=== PATIENT | male | born 1985 | race Caucasian/White ===

== ENCOUNTER 2024-08-07 09:32 | Outpatient (AMB) | payer MEDICAID, SELFPAY ==
--- NOTE | 2024-08-07 09:34 | A.OFFVIS_ITS ---
Intake Visit Reasons: [facility] Ref Intake Note: [employer] Right LE non healing wounds for 10 years and Hx of Angios w/ stenting w/ and did some vein ablations. Dr. Dominique from [place] did some additional procedures. Hx of PE and DVT 10 years ago, does have thrombus in Right LE from US 05/28. Pt is on blood thinners and has been seen by hematology in [place]. Accompanied by: Self / Same As Patient Allergies No Known Allergies Allergy (Verified 08/07/24 09:48) HPI HPI [facility] Wound [facility] Ref: Details: Very pleasant 39-year-old gentleman presents for evaluation regarding nonhealing ulcers. He actually has an extremely complex history dating back nearly 10 years. He was actually sent over by the W[facility] Care Center. He has had these nonhealing right lower extremity ulcers they have been present for nearly 10 years he has seen several wound care centers has been treated as an outpatient arterial center. It appears that he has had axial vein ablation is. In addition he has had central venous work. He now presents for vascular evaluation [facility] Medical History (Updated 08/07/24 @ 13:58 by Anibal Stern MD) S/P angiogram of extremity DVT (deep venous thrombosis) Cellulitis of right leg Venous ulcer of right leg Surgical History (Updated 08/07/24 @ 09:58 by EDDI Cortez) Status post ablation of incompetent vein using laser Social History (Updated 08/07/24 @ 09:48 by EDDI Cortez) Patient Tobacco Use Status: Never used Tobacco Review of Systems Const All systems reviewed & are unremarkable except as noted in HPI and below Reports no additional complaints ENT Reports Normal hearing present Card Denies chest pain, Denies chest pain at rest, Denies chest pain with activity and Denies pedal edema Resp Denies cough GI Denies abdominal pain Musc Denies abnormal gait, Denies muscle cramps and Denies radiating pain into limb Skin/Breast Denies skin ulcer and Denies wounds Neuro Reports Normal hearing present and Denies abnormal gait Psych Reports no additional complaints Physical Exam Const General: cooperative, healthy appearing and comfortable Orientation/consciousness: oriented to person, oriented to place and oriented to time HEENT Head: Yes normal to inspection Neck Neck: Yes normal visual inspection Carotids: no bruits Chest Chest palpation & inspection: normal inspection of the chest Resp Effort & Inspection: normal respiratory effort and able to speak in complete sentences Auscultation: clear to auscultation bilaterally, no crackles, no rales, no rhonchi and no wheezes Cardio Rate: regular rate Rhythm: regular rhythm Heart sounds: S1 normal heart sound present and S2 normal heart sound present Bruits: no carotid bruits Peripheral pulses: Peripheral pulses 2+ throughout GI Inspection: Yes normal to inspection Skin Other: Plus two edema, nonhealing ulcers right lower extremity Wounds: no wounds Hair: normal Neuro General: oriented to person, oriented to place and oriented to time Cranial nerves: Yes CN's II-XII intact bilaterally and Yes Normal hearing present Cognition (Neuro): normal cognition Motor exam (neuro): 5/5 motor strength present throughout Extrem Other: venous exam: No significant superficial varicosities or spider telangiectasias, minimal edema General: No clubbing, No cyanosis and No edema Psych Appearance: grossly normal Mental Status: mental status grossly normal Speech and movement: Normal speech and movement present Assessment & Plan Assessment & Plan (1) PAD (peripheral artery disease): Comment: - endovascular treatment by Dr. Abdul right lower extremity what was done is unknown Code(s): I73.9 - Peripheral vascular disease, unspecified Category: Medical Plan: May need follow-up regarding this. (2) DVT (deep venous thrombosis): Comment: 2018 - [place] appears to have deep venous thrombectomy with possible venous stenting Code(s): I82.409 - Acute embolism and thrombosis of unspecified deep veins of unspecified lower extremity Category: Medical Plan: Status of deep system is unknown. Will need CT venogram to better elucidate this. It has never been surveillance followed up. (3) Varicose veins of right lower extremity with inflammation: Comment: 2018 - axial venous procedures performed by Dr. Pradhan what was done is unknown. Code(s): I83.11 - Varicose veins of right lower extremity with inflammation Category: Medical Plan: Will workup deep system 1st. Orders: Orders 2 CT abdomen pelvis wo IV con 1 Week I82.409 - Acute embolism and thrombosis of unspecified deep veins of unspecified lower extremity Blood Urea Nitrogen Today I82.409 - Acute embolism and thrombosis of unspecified deep veins of unspecified lower extremity Creatinine Today I82.409 - Acute embolism and thrombosis of unspecified deep veins of unspecified lower extremity Coding Level of Care Code New Pt Level 4 (71800) Diagnoses PAD (peripheral artery disease) I73.9 DVT (deep venous thrombosis) I82.409 Varicose veins of right lower extremity with inflammation I83.11
== END 2024-08-07 10:03 | disposition home or self-care (01) ==
PROVIDERS: PCP Family Medicine; Visit Provider Surgery Vascular Surgery
DX: I73.9 Peripheral vascular disease, unspecified (principal); I82.409 Acute embolism and thrombosis of unspecified deep veins of unspecified lower extremity; I83.11 Varicose veins of right lower extremity with inflammation
CPT/HCPCS: 99204

== ENCOUNTER → 2024-08-07 09:32 | Outpatient (BNVA) | payer MEDICAID, SELFPAY | PROVIDERS: PCP Family Medicine; Visit Provider Surgery Vascular Surgery | DX: I73.9 Peripheral vascular disease, unspecified (principal); I82.401 Acute embolism and thrombosis of unspecified deep veins of right lower extremity; I83.11 Varicose veins of right lower extremity with inflammation | CPT/HCPCS: 99202 ==

== ENCOUNTER 2024-09-24 07:49 | Outpatient (REF) | payer MEDICAID, SELFPAY ==
--- NOTE | ~2024-09-24 | CT_ITS ---
EXAMINATION: CT ANGIOGRAM ABDOMEN AND PELVIS CLINICAL INFORMATION: Peripheral vascular disease, unspecified. History of DVT. COMPARISON: None available. TECHNIQUE: Multiple axial images were obtained through the abdomen and pelvis following the administration of 80 mL of Omnipaque 350 intravenous contrast without reported immediate complications. Images were reviewed on a dedicated 3-D workstation. This CT examination was performed using dose optimization techniques as appropriate, variously including the following: *Automated exposure control *Adjustment of mA and/or kV according to patient size (this includes techniques or standardized protocols for targeted exams where dose is matched to indication/reason for exam; i.e. extremities or head) *Use of iterative reconstruction technique DLP: 770 mGy-cm FINDINGS: Submitted for interpretation on October 06, 2024. Abdominal aorta is patent. Proximal abdominal aorta measures 21 mm. Infrarenal abdominal aorta measures 17 mm. Distal abdominal aorta measures 17 mm. No intimal flap. No focal stenosis. Right common iliac artery measures 11 mm. Left common iliac artery measures 10 mm. Right external iliac artery measures 9 mm. Left external iliac artery measures 9 mm. The internal iliac arteries are patent. Celiac trunk is patent without focal stenosis or intimal flap or vascular abnormality. Superior mesenteric artery is patent without focal stenosis or intimal flap. The inferior mesenteric artery is patent without focal stenosis. The main renal arteries are patent without focal stenosis. No gross accessory renal arteries. Ancillary findings: Hiatal hernia, moderate to large size. Nonspecific mesenteric edema pattern in mild prominent mesenteric lymph nodes. Fat-containing umbilical hernia, small. Multilevel thoracolumbar spondylosis with an old superior compression deformity at L1 representing 40% volume loss. Grade 1 anterolisthesis L5-S1 on a degenerative basis. CT/CT angio abdomen pelvis IMPRESSION: No aneurysm or dissection or high degree stenosis. Fleischner guidelines were followed. Electronically signed by: Faisal Wren MD 10/06/2024 11:54 AM EST
[2024-09-24] MEDS: iohexoL 350 MG/ML 100 ML INFUS..BTL 80 ML IV (08:47)
== END 2024-09-24 07:50 | disposition home or self-care (01) ==
LOC: HO.CT 07:49
PROVIDERS: PCP Family Medicine; Visit Provider Surgery Vascular Surgery
DX: I73.9 Peripheral vascular disease, unspecified (principal)
CPT/HCPCS: 74174; Q9967

== ENCOUNTER → 2024-09-24 07:50 | Outpatient (BNV) | payer MEDICAID, SELFPAY | PROVIDERS: PCP Family Medicine; Visit Provider Radiology Diagnostic Radiology | DX: I82.409 Acute embolism and thrombosis of unspecified deep veins of unspecified lower extremity (principal) | CPT/HCPCS: 74174 ==

== ENCOUNTER 2024-10-07 08:58 | Outpatient (AMB) | payer MEDICAID, SELFPAY ==
--- NOTE | 2024-10-07 09:17 | MHC.OFFVIS ---
Intake Visit Reasons: follow up s/p CT Abd/Pelvis 09/09/24 Intake Note: Patient presents for follow up CT ABD/Pelvis. No complaints. Accompanied by: Self / Same As Patient Allergies No Known Allergies Allergy (Verified 10/07/24 09:17) [facility] follow up s/p CT Abd/Pelvis 09/09/24: Details: Very pleasant 39-year-old gentleman presents for follow-up regarding nonhealing right lower extremity wounds. He complex history of ulcers in the right leg. He had seen a [facility] and actually had venous treatments done at [facility] in addition he did report some lower extremity stenting of what he is unclear if that was arterial or venous. Now presents for follow-up with Central CT of abdomen and pelvis. Of note he is following the Wound Care Center and appears to be scheduled for [facility] skin substitute placement. [facility] Medical History (Updated 10/07/24 @ 12:59 by Anibal Stern MD) S/P angiogram of extremity DVT (deep venous thrombosis) Cellulitis of right leg Venous ulcer of right leg Surgical History (Updated 08/07/24 @ 09:58 by EDDI Cortez) Status post ablation of incompetent vein using laser Social History (Updated 08/07/24 @ 09:48 by EDDI Cortez) Patient Tobacco Use Status: Never used Tobacco Review of Systems Const Reports as per HPI ENT Reports no additional complaints Card Denies chest pain, Denies chest pain at rest and Denies chest pain with activity Resp Denies chest congestion and Denies cough GI Reports no additional complaints Musc Details: pain over varicosities, aching of lower extremities, swelling, cramping, heaviness and tiredness, itching Denies abnormal gait Skin/Breast Reports pruritus and Denies wounds Neuro Reports no additional complaints and Denies abnormal gait Psych Denies no additional complaints Physical Exam Const General: cooperative, healthy appearing and comfortable Orientation/consciousness: oriented to person, oriented to place and oriented to time Neck Carotids: no bruits Chest Chest palpation & inspection: normal inspection of the chest and normal palpation of entire chest wall Resp Effort & Inspection: normal respiratory effort and able to speak in complete sentences Cardio Rate: regular rate Heart sounds: S1 normal heart sound present and S2 normal heart sound present Peripheral pulses: Peripheral pulses 2+ throughout GI Inspection: Yes normal to inspection Skin Other: +2 edema, right calf ulcer CEAP Classification C6 - right calf ulcer Ep - Etiology Primary As - superficial veins P - reflux General skin exam: dry skin Neuro General: oriented to person, oriented to place and oriented to time Extrem Right lower extremity: full ROM, normal capillary refill and edema Left lower extremity: full ROM, normal capillary refill and edema Psych Mental Status: mental status grossly normal Results Reviewed Results Reviewed: CT scan dated 09/24/2024 demonstrates no central arterial stenosis. No central venous stenosis written report and images were reviewed. Assessment & Plan Assessment & Plan (1) PAD (peripheral artery disease): Comment: - endovascular treatment by Dr. Abdul right lower extremity what was done is unknown Code(s): I73.9 - Peripheral vascular disease, unspecified Category: Medical Plan: Reports prior stenting of the right lower extremity. Will get noninvasive arterial testing. (2) DVT (deep venous thrombosis): Comment: 2017 - [place] appears to have deep venous thrombectomy with possible venous stenting Code(s): I82.409 - Acute embolism and thrombosis of unspecified deep veins of unspecified lower extremity Category: Medical Qualifiers: DVT location: lower extremity Affected thrombotic vein of extremity: femoral Chronicity: chronic Laterality: right Qualified Code(s): I82.511 - Chronic embolism and thrombosis of right femoral vein Plan: Negative for central venous stenosis or stenting. Will get axial venous insufficiency testing. Please note a longitudinal relationship has been created with the patient and we have been following and surveillance this chronic condition. (3) Varicose veins of right lower extremity with inflammation: Comment: 2017 - axial venous procedures performed by Dr. Pradhan what was done is unknown. 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
== END 2024-10-07 09:48 | disposition home or self-care (01) ==
PROVIDERS: PCP Family Medicine; Visit Provider Surgery Vascular Surgery
DX: I73.9 Peripheral vascular disease, unspecified (principal); I82.511 Chronic embolism and thrombosis of right femoral vein; I83.11 Varicose veins of right lower extremity with inflammation
CPT/HCPCS: 99214

== ENCOUNTER → 2024-10-07 08:58 | Outpatient (BNVA) | payer MEDICAID, SELFPAY | PROVIDERS: PCP Family Medicine; Visit Provider Surgery Vascular Surgery | DX: I73.9 Peripheral vascular disease, unspecified (principal); I82.511 Chronic embolism and thrombosis of right femoral vein; I83.11 Varicose veins of right lower extremity with inflammation | CPT/HCPCS: 99212 ==

== ENCOUNTER 2024-10-31 08:00 | Outpatient (REF) | payer MEDICAID, SELFPAY ==
--- NOTE | ~2024-10-31 | US_ITS ---
CLINICAL HISTORY: I83.11 - Varicose veins of right lower extremity with inflammation Venous duplex ultrasound right lower extremity Superficial venous reflux ultrasound Comparison: None Findings: The visualized deep veins are fully compressible with normal Doppler color flow and spectral tracings; however, there is minimal peripheral echogenic material along the right common, femoral and popliteal veins suggestive of prior deep vein thrombosis with residual scarring or minimal residual chronic deep vein thrombosis. No popliteal cyst. No deep venous reflux identified. Great saphenous vein: Saphenofemoral junction: 7 mm with 1.4 seconds of reflux Proximal thigh: 0.9 cm, 1.7 cm of reflux Mid thigh: 7 mm, no reflux Above knee: 2 mm, no reflux Small saphenous vein: Measures between 1 and 6 mm with no evidence of reflux. Several perforators in varicosities are noted adjacent to the calf wounds, demonstrating reflux, the largest arising in the region of the great saphenous vein, mid thigh measuring 8 mm and within the distal calf adjacent to the wound measuring 4 mm exhibiting 1.4 seconds of reflux. IMPRESSION: No acute deep vein thrombosis. Possible old scarring or minimal chronic deep vein thrombosis as detailed above. Reflux with perforators and varicosities as described. This document has been electronically signed by: Robbie Devi MD on 11/05/2024 08:40:34
== END 2024-10-31 08:01 | disposition home or self-care (01) ==
LOC: HO.US 08:00
PROVIDERS: PCP Family Medicine; Visit Provider Surgery Vascular Surgery
DX: I83.11 Varicose veins of right lower extremity with inflammation (principal)
CPT/HCPCS: 93971

== ENCOUNTER → 2024-10-31 08:01 | Outpatient (BNV) | payer MEDICAID, SELFPAY | PROVIDERS: PCP Family Medicine; Visit Provider Radiology Vascular & Interventional Radiology | DX: I83.11 Varicose veins of right lower extremity with inflammation (principal) | CPT/HCPCS: 93971 ==

== ENCOUNTER 2024-11-04 13:49 | Outpatient (REF) | payer MEDICAID, SELFPAY ==
--- NOTE | ~2024-11-04 | US_ITS ---
CLINICAL HISTORY: I73.9 - Peripheral vascular disease, unspecified Ankle-brachial index Comparison: None Findings: Right brachial artery 133.0 mmHg Right posterior tibial artery 200.0 mmHg Right dorsalis pedis artery 165.0 mmHg Right GUALBERTO:1.37 Left brachial artery 146.0 mmHg Left posterior tibial artery 160.0 mmHg Left dorsalis pedis artery 155.0 mmHg Left GUALBERTO:1.10 GUALBERTO and estimated severity of disease: 0.96 - 1.30 generally normal 0.81 - 0.95 mild disease 0.51 - 0.80 moderate disease 0.31 - 0.50 moderate to severe disease < 0.30 severe disease Impression: 1. Right GUALBERTO is normal 2. Left GUALBERTO is normal Right lower extremity duplex arterial Doppler Comparison: None Technique: Grayscale/Color/Duplex Doppler sonographic evaluation of the arterial system of the right Findings: Right lower extremity HISTOTECHNICIAN: Triphasic: 89.4 cm/s SFA: Triphasic: 97.1 cm/s Popliteal artery: 75.0: cm/s Posterior tibial: Triphasic: 136.8 cm/s Dorsalis pedis: Biphasic: 13.5 cm/s Anterior tibial: Triphasic: 94.0 cm/s Peroneal: Not visualized: Enlarged right inguinal lymph node with a fatty hilum. This measures 1.3 cm in short axis. Impression: 1. No occlusive disease right lower extremity. 2. Triphasic flow above the right knee. Biphasic flow in the right dorsalis pedis artery. Elevated peak systolic velocity in the right posterior tibial vein may reflect mild stenosis. This document has been electronically signed by: Wilmar Baumann MD on 11/05/2024 13:48:33
== END 2024-11-04 13:50 | disposition home or self-care (01) ==
LOC: HO.US 13:49
PROVIDERS: PCP Family Medicine; Visit Provider Surgery Vascular Surgery
DX: I73.9 Peripheral vascular disease, unspecified (principal)
CPT/HCPCS: 93926

== ENCOUNTER → 2024-11-04 13:51 | Outpatient (BNV) | payer MEDICAID, SELFPAY | PROVIDERS: PCP Family Medicine; Visit Provider Radiology Diagnostic Radiology | DX: I73.9 Peripheral vascular disease, unspecified (principal) | CPT/HCPCS: 93926 ==

== ENCOUNTER → 2024-11-27 13:50 | Outpatient (BNVA) | payer MEDICAID, SELFPAY | PROVIDERS: PCP Family Medicine; Visit Provider Surgery Vascular Surgery | DX: I73.9 Peripheral vascular disease, unspecified (principal); I83.11 Varicose veins of right lower extremity with inflammation | CPT/HCPCS: 99212 ==

== ENCOUNTER → 2024-12-05 11:51 | Outpatient (BNVA) | payer MEDICAID, SELFPAY | PROVIDERS: PCP Family Medicine; Visit Provider Surgery Vascular Surgery | DX: I83.11 Varicose veins of right lower extremity with inflammation (principal) | CPT/HCPCS: 36475; J2003; J2004 ==

== ENCOUNTER 2024-12-18 14:10 | Outpatient (AMB) | payer MEDICAID, SELFPAY ==
--- NOTE | 2024-12-18 14:12 | MHC.OFFVIS ---
Intake Visit Reasons: 2 wk follow up 12/05/24 RFA Intake Note: 2 week follow up Right GSV RFA 12/05/24, pt states he does have some discomfort over treated area, walking tends to help. Pt states wounds are still about the same, havent worsened. Accompanied by: Self / Same As Patient Allergies No Known Allergies Allergy (Verified 12/18/24 14:16) HPI HPI 2 wk follow up 12/05/24 RFA: Details: Rafael is presenting today as a follow up to RFA procedure, performed on 12/05/2024. He states he has been having some pain and tenderness to the right upper thigh area, where the procedure was performed. He has been the using heat, which he states temporarily relieves the pain as well as Tylenol OTC for pain, which he states is only temporary as well. He is unable to take NSAIDs due to being on Xarelto. He continues to follow up with wound care for his right lower extremity wound; he is waiting on a skin substitute to come. [facility] Medical History S/P angiogram of extremity DVT (deep venous thrombosis) Cellulitis of right leg Venous ulcer of right leg Surgical History Status post ablation of incompetent vein using laser Social History Patient Tobacco Use Status: Never used Tobacco Review of Systems Const Reports as per HPI and Denies weakness ENT Reports Normal hearing present and Denies dizziness Card Reports as per HPI, Denies chest pain, Denies chest pain at rest, Denies chest pain with activity, Denies dyspnea and Denies dyspnea on exertion Resp Reports as per HPI, Denies cough, Denies dyspnea and Denies dyspnea on exertion GI Reports as per HPI, Denies abdominal pain, Denies nausea and Denies vomiting Musc Denies numbness Skin/Breast Reports as per HPI, Denies erythema and Denies wounds Neuro Reports Normal hearing present, Denies dizziness, Denies numbness, Denies Sensory deficit (Neuro) and Denies weakness Psych Reports no additional complaints Endo Reports no additional complaints Physical Exam Const General: healthy appearing and no acute distress Orientation/consciousness: patient oriented x3 HEENT Head: Yes normal to inspection Ears: hearing grossly normal bilaterally Mouth: Normal oral and palatal mucosa present Resp Effort & Inspection: normal respiratory effort and able to speak in complete sentences Auscultation: clear to auscultation bilaterally Cardio Jugular venous distension: no JVD Rate: regular rate Rhythm: regular rhythm Heart sounds: S1 normal heart sound present and S2 normal heart sound present Bruits: no abdominal aortic bruits, no carotid bruits, no femoral bruits and no renal bruits Peripheral pulses: Peripheral pulses 2+ throughout GI Inspection: Yes normal to inspection Palpation (GI): No Abdominal aortic bruit present Skin General skin exam: no rashes or lesions noted Wounds: no wounds Hair: normal Neuro General: patient oriented x3 Cranial nerves: Yes Normal hearing present Cognition (Neuro): normal cognition Gait exam (Neuro): Normal gait present Motor exam (neuro): 5/5 motor strength present throughout Sensory Exam: No Sensory deficit (Neuro) Extrem Other: Right lower extremity thigh: Tender to palpation on the inner medial thigh. Slight pink/light red discoloration noted around the area of the RFA site, no signs of infection. Puncture site is clean and dry. Lower extremity wound wrapped, did not take down today. General: Yes normal to inspection, Yes full ROM, Yes capillary refill normal and Yes normal gait Assessment & Plan Assessment & Plan (1) Varicose veins of right lower extremity with inflammation: Comment: 2018 - axial venous procedures performed by Dr. Pradhan what was done is unknown. 12/05/2024 - right great saphenous vein radiofrequency ablation Code(s): I83.11 - Varicose veins of right lower extremity with inflammation Category: Medical Plan: Rafael is presenting today on a 2 week follow up status post RFA of the right great saphenous vein, performed on 12/05/2024. He states he has been doing well but does endorse some pain and tenderness in the area of the RFA site. He has been using heat with some temporary relief as well as Tylenol, again with only temporary relief. He is unable to take NSAIDs at this time. We discussed to continue applying heat for up to 20 minutes at a time several times a day. We discussed that he could try ice/cold to see if that could help with the pain as well. We discussed continuing taking Tylenol for pain relief. He would like to come back for further procedures that were discussed in previous visits with Dr. Stern; I discussed with him that it would be best that if he could get completely healed from this procedure and we could follow up with him in a month or so. Thank you for allowing us to participate in the patient's care. If there are any questions or concerns, please do not hesitate to reach out to us. Coding Level of Care Code Est Pt Level 4 (33076) Diagnoses Varicose veins of right lower extremity with inflammation I83.11
--- OUTSIDE RECORDS SUMMARY | 2024-12-18 14:14 | XMS_ITS | Clinical Summary ---
Author Organization [facility] Address [address] [place] [address] Care Team Providers Care Glass Processing Worker Name Role Phone Unavailable Primary Care Provider Unavailabl e Social History Tobacco Use Types Packs/Day Years Used Date Smoking Tobacco: Never Assessed Sex and Gender Information Value Date Recorded Sex Assigned at Not on file Gender Identity Not on file Sexual Orientation Not on file Plan of Treatment Health Maintenance Due Date Last Done Comments Hepatitis C Virus Screening 1987 HIV Screening 01/25/2000 DTaP/Tdap/Td Vaccines (1 - Tdap) 2006 Hepatitis B Vaccines (1 of 3 - 19+ 3-dose series) 2006 Influenza Vaccine 06/05/2024 COVID-19 Vaccine ( - 2023-2 5 season) 2024 HPV Vaccines Aged Out No longer eligi ble based on patient's age to complete this topic Pneumococcal Vaccine: Pediat ania (0-5 Years) and At-Risk Patients (6 to 49 Years) Aged Out No longer eligible b ased on patient's age to complete this topic
== END 2024-12-18 15:01 | disposition home or self-care (01) ==
PROVIDERS: PCP Family Medicine; Visit Provider Surgery Vascular Surgery
DX: I83.11 Varicose veins of right lower extremity with inflammation (principal)
CPT/HCPCS: 99214

== ENCOUNTER → 2024-12-18 14:10 | Outpatient (BNVA) | payer MEDICAID, SELFPAY | PROVIDERS: PCP Family Medicine; Visit Provider Surgery Vascular Surgery | DX: I83.11 Varicose veins of right lower extremity with inflammation (principal) | CPT/HCPCS: 99212 ==

== ENCOUNTER 2025-01-27 09:06 | Outpatient (AMB) | payer MEDICAID, SELFPAY ==
--- NOTE | 2025-01-27 09:11 | A.OFFVIS_ITS ---
Intake Visit Reasons: 1 mo follow up Right LE check Intake Note: 1 mo followup Right LE check s/p Right GSV RFA 12/05/24, Pt states wound size has not changed much and goes to [facility] woundcare 1 x per week. Pt states he does still have swelling. Accompanied by: Self / Same As Patient Allergies No Known Allergies Allergy (Verified 01/27/25 09:24) HPI HPI 1 mo follow up Right LE check: Details: The patient is a 40-year-old male presenting with follow-up for status post- right Great Saphenous Vein Radiofrequency Ablation (GSV RFA). His post- procedural care includes regular visits to a wound care center. The patient recounts persistent challenges with wound healing, notably unchanged wound states post-procedure and episodes of swelling in his leg. Although occasional improvement is observed, progress is inconsistent, resulting in wound reopening at times. He notes that he has not had infections recently, a significant improvement from earlier months when he required hospital visits for IV antibiotics. The patient has developed post-procedure phlebitis, impacting his overall condition. He identifies noticeable hardening due to phlebitis but acknowledges a gradual improvement. Utilizing warm compresses has been helpful in managing discomfort. The patient actively participates in wound care at home and aligns with the wound care center weekly for assessment and additional management with silver alginate dressings. In the past, he employed multilayer compression dressings which effectively provided necessary compression and dressing stability. He is in pursuit of limb elevation strategies and lymphedema compression solutions to manage the recurring swelling. The patient has had difficulty obtaining a specific skin graft, a fish-derived substitute, rendering attempts to support wound recovery more challenging. [facility] Medical History S/P angiogram of extremity DVT (deep venous thrombosis) Cellulitis of right leg Venous ulcer of right leg Surgical History Status post ablation of incompetent vein using laser Social History Patient Tobacco Use Status: Never used Tobacco Review of Systems Const All systems reviewed & are unremarkable except as noted in HPI and below Reports no additional complaints ENT Reports Normal hearing present Card Denies chest pain, Denies chest pain at rest, Denies chest pain with activity and Denies pedal edema Resp Denies cough GI Denies abdominal pain Musc Denies abnormal gait, Denies muscle cramps and Denies radiating pain into limb Skin/Breast Denies skin ulcer and Denies wounds Neuro Reports Normal hearing present and Denies abnormal gait Psych Reports no additional complaints Physical Exam Const General: cooperative, healthy appearing and comfortable Orientation/consciousness: oriented to person, oriented to place and oriented to time HEENT Head: Yes normal to inspection Neck Neck: Yes normal visual inspection Carotids: no bruits Chest Chest palpation & inspection: normal inspection of the chest Resp Effort & Inspection: normal respiratory effort and able to speak in complete sentences Auscultation: clear to auscultation bilaterally, no crackles, no rales, no rhonchi and no wheezes Cardio Rate: regular rate Rhythm: regular rhythm Heart sounds: S1 normal heart sound present and S2 normal heart sound present Bruits: no carotid bruits Peripheral pulses: Peripheral pulses 2+ throughout GI Inspection: Yes normal to inspection Skin Other: Nonhealing right lower extremity ulcer Wounds: no wounds Hair: normal Neuro General: oriented to person, oriented to place and oriented to time Cranial nerves: Yes CN's II-XII intact bilaterally and Yes Normal hearing present Cognition (Neuro): normal cognition Motor exam (neuro): 5/5 motor strength present throughout Extrem Other: Right in cm: Thigh 61 Knee 48 Calf 47 Ankle 37 Left in cm: Thigh 53 Knee 45 Calf 42.5 Ankle 24 General: No clubbing, No cyanosis and Yes edema Psych Appearance: grossly normal Mental Status: mental status grossly normal Speech and movement: Normal speech and movement present Assessment & Plan Assessment & Plan (1) PAD (peripheral artery disease): Comment: - endovascular treatment by Dr. Abdul right lower extremity what was done is unknown Code(s): I73.9 - Peripheral vascular disease, unspecified Category: Medical Plan: Stable (2) Varicose veins of right lower extremity with inflammation: Comment: 2017 - axial venous procedures performed by Dr. Pradhan what was done is unknown. 12/05/2024 - right great saphenous vein radiofrequency ablation Code(s): I83.11 - Varicose veins of right lower extremity with inflammation Category: Medical Plan: He does have mild postprocedure phlebitis. We did discuss routine postprocedure measures including warm compresses and use of NSAIDs. (3) DVT (deep venous thrombosis): Comment: 2017 - [place]am appears to have deep venous thrombectomy with possible venous stenting Code(s): I82.409 - Acute embolism and thrombosis of unspecified deep veins of unspecified lower extremity Category: Medical Qualifiers: DVT location: lower extremity Affected thrombotic vein of extremity: femoral Chronicity: chronic Laterality: right Qualified Code(s): I82.511 - Chronic embolism and thrombosis of right femoral vein Plan: Stable (4) Lymphedema: Code(s): I89.0 - Lymphedema, not elsewhere classified Category: Medical Plan: In short the patient has late on sent lymphedema. The patient has been on conservative treatment for at least 3 months with minimal relief. Patient has tried 30 mm of mercury compression garments, elevation, exercise healthy diet and doing manual says self MLD to the best of their ability for over 4 weeks but with no significant relief. She has been compliant with the program but has provided minimal relief. In addition on physical we are noticing hyperpigmentation, lymphorrhea, and hyperplasia. It appears that she has stage 2 lymphedema. Patient has completed multiple forms of conservative therapy yet significant symptoms remain. Patient requires the use of a pneumatic compression device which we will assist in trying to have the patient obtain them. A pneumatic compression device will help reduce swelling and other lymphedema comorbidities. Thank you for allowing us to assist in this patient's care. Patient Instructions: - Continue applying silver alginate dressings as directed. - Use prescribed moisturizers, such as Eucerin Aquaphor or CeraVe, to maintain skin health. - Elevate the leg as much as possible to help reduce swelling. - Monitor for any signs of infection or increased pain, and seek care immediately if such symptoms develop. - Attend scheduled appointments for follow-up and lymphedema clinic evaluation. - Expect communication regarding skin graft availability and additional management steps. 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
--- OUTSIDE RECORDS SUMMARY | 2025-01-27 10:01 | XMS_ITS ---
Author Name [facility] Organization Unknown Encounters Encounter Type Encounter Reason Primary Diagnosis Location Date Ambulatory Pulmonary Embolism appening 01/26/2022 Care Team Organization Name Specialty Phone Email Start Date End Da te appening 01/28/2022 06/23/2024 appening 01/26/2022 01/26/2022
--- OUTSIDE RECORDS SUMMARY | 2025-01-27 10:01 | XMS_ITS | Clinical Summary ---
Author Organization [facility] Address [address] [place] [address] Care Team Providers Care Music Promoter Name Role Phone Unavailable Primary Care Provider [...]
== END 2025-01-27 10:19 | disposition home or self-care (01) ==
LOC: HO.HVS 09:06
PROVIDERS: PCP Family Medicine; Visit Provider Surgery Vascular Surgery
DX: I73.9 Peripheral vascular disease, unspecified (principal); I83.11 Varicose veins of right lower extremity with inflammation; I82.511 Chronic embolism and thrombosis of right femoral vein; I89.0 Lymphedema, not elsewhere classified
CPT/HCPCS: 99214; G2211

== ENCOUNTER → 2025-01-27 09:06 | Outpatient (BNVA) | payer MEDICAID, SELFPAY | PROVIDERS: PCP Family Medicine; Visit Provider Surgery Vascular Surgery | DX: I73.9 Peripheral vascular disease, unspecified (principal); I83.11 Varicose veins of right lower extremity with inflammation; I82.511 Chronic embolism and thrombosis of right femoral vein; I89.0 Lymphedema, not elsewhere classified; Z98.890 Other specified postprocedural states | CPT/HCPCS: 99212 ==

== ENCOUNTER 2025-02-18 12:15 | Outpatient (AMB) | payer MEDICAID, SELFPAY ==
--- NOTE | 2025-02-18 12:23 | MHC.OFFVIS ---
Vital Signs 02/18/25 12:32 Height 6 ft 3 in Weight 260 lb BMI 32.5 Intake Visit Reasons: Lymphedema clinic Intake Note: Lymphedema clinic for LE swelling and non-healing ulcer Right LE worse than Left LE. Pt changes dressing QOD Audio Visual Director Required: No Accompanied by: Self / Same As Patient Allergies No Known Allergies Allergy (Verified 02/18/25 12:35) HPI HPI Lymphedema clinic: Details: Rafael is presenting today for our lymphedema clinic. He continues to endorse bilateral lower extremity swelling and ongoing wounds, which he states worsen when his legs are more swollen. He continues to go to the Wound Care Clinic weekly. He is also s/p right GSV RFA, which he states helped a little. [facility] Medical History S/P angiogram of extremity DVT (deep venous thrombosis) Cellulitis of right leg Venous ulcer of right leg Surgical History Status post ablation of incompetent vein using laser Social History Patient Tobacco Use Status: Never used Tobacco Review of Systems Const Reports as per HPI and Denies weakness ENT Reports Normal hearing present and Denies dizziness Card Reports as per HPI, Denies chest pain, Denies chest pain at rest, Denies chest pain with activity, Denies dyspnea and Denies dyspnea on exertion Resp Reports as per HPI, Denies cough, Denies dyspnea and Denies dyspnea on exertion GI Reports as per HPI, Denies abdominal pain, Denies nausea and Denies vomiting Musc Denies numbness Skin/Breast Reports as per HPI, Denies erythema and Denies wounds Neuro Reports Normal hearing present, Denies dizziness, Denies numbness, Denies Sensory deficit (Neuro) and Denies weakness Psych Reports no additional complaints Endo Reports no additional complaints Physical Exam Vital Signs: BMI result Body Mass Index 32.5 Neuro Cranial nerves: Yes Normal hearing present Sensory Exam: No Sensory deficit (Neuro) Extrem Other: Bilateral lower extremities: wraps not taken down today. +2 pitting edema noted. Assessment & Plan Assessment & Plan (1) Lymphedema: Code(s): I89.0 - Lymphedema, not elsewhere classified Category: Medical Plan: Rafael is presenting today for our lymphedema clinic. He continues to endorse bilateral lower extremity swelling with nonhealing wounds. Rafael is presenting today to be fitted for lymphedema pumps. They have had more than 3 months, starting on 08/07/24, of conservative treatments with elevation, compression stockings daily use with 20-30mmHg, and physical activity with minimal relief. They continue to have persistent symptoms despite conservative treatments. They are presenting with hyperpigmentation, lymphorrhea, hyperkeratosis, and 2+ pitting edema. It appears that they have stage II lymphedema. Everette, from [employer], will be fitting them for a pneumatic compression device, which will get mailed to their house. The patient has lymphedema that extends to their upper thigh and abdominal region. The basic pneumatic compression device is not adequate for the patient; it has been trialed but is not clinically appropriate due to the extensive lymphedema noted. The advanced compression device will be the best in this case. Thank you allowing us to care for the patient. There is an out of network exception due to no local pump companies available. Coding Level of Care Code Est Pt Level 3 (41490) Diagnoses Lymphedema I89.0
[2025-02-18 12:32] VITALS: BMI 32.5
--- OUTSIDE RECORDS SUMMARY | 2025-02-18 14:34 | XMS_ITS | Clinical Summary ---
Author Organization [facility] Address [address] [place] [address] Care Team Providers Care Tub Puller Name Role Phone Unavailable Primary Care Provider Unavailabl e Social History Tobacco Use Types Packs/Day Years Used Date Smoking Tobacco: Never Assessed Sex and Gender Information Value Date Recorded Sex Assigned at Not on file Legal Sex Male 9:10 PM EDT Gender Identity Not on file Sexual Orientation [...] on patient's age to complete this topic Insurance [employer]
== END 2025-02-18 13:02 | disposition home or self-care (01) ==
LOC: HO.HVS 12:16
PROVIDERS: PCP Family Medicine; Visit Provider Physician Assistant Surgical
DX: I89.0 Lymphedema, not elsewhere classified (principal)
CPT/HCPCS: 99213

== ENCOUNTER → 2025-02-18 12:15 | Outpatient (BNVA) | payer MEDICAID, SELFPAY | PROVIDERS: PCP Family Medicine; Visit Provider Physician Assistant Surgical | DX: I89.0 Lymphedema, not elsewhere classified (principal); L97.819 Non-pressure chronic ulcer of other part of right lower leg with unspecified severity | CPT/HCPCS: 99212 ==

== ENCOUNTER 2025-03-12 11:14 | Outpatient (AMB) | payer MEDICAID, SELFPAY ==
[2025-03-12 11:21] VITALS: BMI 32.5
--- NOTE | 2025-03-12 11:21 | MHC.OFFVIS ---
Vital Signs 03/12/25 11:21 Height 6 ft 3 in Weight 260 lb BMI 32.5 Intake Visit Reasons: follow up 6 wk leg check Intake Note: follow up 6 wk leg check s/p Right GSV RFA 12/05/24. Has not been seen by woundcare in a while, has left v-mails to schedule. Does have LE swelling. Accompanied by: Self / Same As Patient Allergies No Known Allergies Allergy (Verified 03/12/25 11:23) HPI HPI follow up 6 wk leg check: Details: Very pleasant 40-year-old gentleman presents for follow-up status post right great saphenous vein radiofrequency ablation. He presents for follow-up regarding his right lower extremity. Continues to be significantly swollen and some drainage through the wounds. He has not been seen by the Wound Care Center and unfortunately has had difficulty reaching the Wound Care Center. He now presents for routine follow-up regarding his right lower extremity. [facility] Medical History S/P angiogram of extremity DVT (deep venous thrombosis) Cellulitis of right leg Venous ulcer of right leg Surgical History Status post ablation of incompetent vein using laser Social History Patient Tobacco Use Status: Never used Tobacco Review of Systems Const All systems reviewed & are unremarkable except as noted in HPI and below Reports no additional complaints ENT Reports Normal hearing present Card Denies chest pain, Denies chest pain at rest, Denies chest pain with activity and Denies pedal edema Resp Denies cough GI Denies abdominal pain Musc Denies abnormal gait, Denies muscle cramps and Denies radiating pain into limb Skin/Breast Denies skin ulcer and Denies wounds Neuro Reports Normal hearing present and Denies abnormal gait Psych Reports no additional complaints Physical Exam Vital Signs: BMI result Body Mass Index 32.5 Const General: cooperative, healthy appearing and comfortable Orientation/consciousness: oriented to person, oriented to place and oriented to time HEENT Head: Yes normal to inspection Neck Neck: Yes normal visual inspection Carotids: no bruits Chest Chest palpation & inspection: normal inspection of the chest Resp Effort & Inspection: normal respiratory effort and able to speak in complete sentences Auscultation: clear to auscultation bilaterally, no crackles, no rales, no rhonchi and no wheezes Cardio Rate: regular rate Rhythm: regular rhythm Heart sounds: S1 normal heart sound present and S2 normal heart sound present Bruits: no carotid bruits Peripheral pulses: Peripheral pulses 2+ throughout GI Inspection: Yes normal to inspection Skin Other: Two right pretibial ulceration this more superior measuring 10 x 5 x 0.2 cm the lower measuring 2 x 5 x 0.1 cm. Overall reasonable base. Some fibrinous necrotic material overlying. Wounds: no wounds Hair: normal Neuro General: oriented to person, oriented to place and oriented to time Cranial nerves: Yes CN's II-XII intact bilaterally and Yes Normal hearing present Cognition (Neuro): normal cognition Motor exam (neuro): 5/5 motor strength present throughout Extrem Other: venous exam: No significant superficial varicosities or spider telangiectasias, minimal edema General: No clubbing, No cyanosis and No edema Psych Appearance: grossly normal Mental Status: mental status grossly normal Speech and movement: Normal speech and movement present Office Procedures Vascular Office Procedure Details Details: Wound debridement note: Preoperative diagnosis: Nonhealing right lower extremity ulcer Postoperative diagnosis: Same Procedure: Excisional debridement into muscle Anesthesia: None Estimated blood loss: Minimal Pre-procedure measurement and appearance: Fibrinous necrotic superior ulcer measuring 10 x 5 x 0.2 cm Postprocedure measurement and appearance: Clean granulation base measuring 10.2 x 5.2 x 0.4 cm Procedure in detail: Excisional debridement of the right pretibial surface was carried out.. Necrotic devitalized and nonviable tissue was removed. We debrided into muscle using curette pickups and iris scissors. Wound was thoroughly irrigated. At the conclusion wound appeared reasonable granulation base fibrinous material was completely removed. Clean and sterile dressing was applied. A Profore compression bandage was then placed. Patient tolerated the procedure well. Instructions were given to the patient. Follow-up was suggested. This note is constructed using voice recognition software. While every effort has been made to ensure accuracy, case maker errors may have been included. Thank you for allowing me to participate in the care of your patient. Yours sincerely, Anibal Stern MD, FACS, R.P.V.I. [id number] Debridement, muscle and or fascia (lst 20 sq cm or less) All charges added?: Procedure code (CPT) selection complete Assessment & Plan Assessment & Plan (1) Lymphedema: Code(s): I89.0 - Lymphedema, not elsewhere classified Category: Medical Plan: Current time patient has nonhealing ulcers with lymphedema. We will place in Profore compression. (2) Varicose veins of right lower extremity with inflammation: Comment: 2018 - axial venous procedures performed by Dr. Pradhan what was done is unknown. 12/05/2024 - right great saphenous vein radiofrequency ablation Code(s): I83.11 - Varicose veins of right lower extremity with inflammation Category: Medical Plan: Continue with local wound care. Will have to schedule for right lower extremity debridement. Follow-up on Sunday for dressing change. Coding Level of Care Code Est Pt Level 4 (35101) Diagnoses Lymphedema I89.0 Varicose veins of right lower extremity with inflammation I83.11
--- OUTSIDE RECORDS SUMMARY | 2025-03-12 12:45 | XMS_ITS | Clinical Summary ---
Author Organization [facility] Address [address] [place] [address] Care Team Providers Care Door Patcher Name Role Phone Unavailable Primary Care Provider [...] of 3 - 19+ 3-dose series) 2006 COVID-19 Vaccine (2023-2 5 season) 2024 Influenza Vaccine 06/05/2025 HPV Vaccines Aged Out No longer eligi ble based on patient's age to complete this topic Pneumococcal Vaccine: Pediat ania (0-5 Years) and At-Risk Patients (6 to 49 Years) Aged Out No longer eligible b ased on patient's age to complete this topic Insurance [employer]
== END 2025-03-12 13:51 | disposition home or self-care (01) ==
LOC: HO.HVS 11:14
PROVIDERS: PCP Family Medicine; Visit Provider Surgery Vascular Surgery
DX: I89.0 Lymphedema, not elsewhere classified (principal); I83.11 Varicose veins of right lower extremity with inflammation
CPT/HCPCS: 99214

== ENCOUNTER → 2025-03-12 11:14 | Outpatient (BNVA) | payer MEDICAID, SELFPAY | PROVIDERS: PCP Family Medicine; Visit Provider Surgery Vascular Surgery | DX: I89.0 Lymphedema, not elsewhere classified (principal); I83.11 Varicose veins of right lower extremity with inflammation | CPT/HCPCS: 99212 ==

== ENCOUNTER 2025-04-02 10:06 | Outpatient (AMB) | payer MEDICAID, SELFPAY ==
--- NOTE | 2025-04-02 10:12 | A.OFFVIS_ITS ---
Vital Signs 04/02/25 10:13 Height 6 ft 3 in Weight 260 lb BMI 32.5 Intake Visit Reasons: follow up wound check Intake Note: follow up Right LE non-healing wound. Pt states he has been short wound care supplies and has been having trouble getting a hold of the [facility] woundcare. States the multi-layer wraps worked good,had bronchitis and wasn't able to come to his last 1 week follow up Instructor Looping Required: No Accompanied by: Self / Same As Patient Allergies No Known Allergies Allergy (Verified 04/02/25 10:15) HPI HPI follow up wound check: Details: 40-year-old gentleman presents for routine wound check follow-up. He had actually undergone placement of a compressive wrap and at that time he developed pneumonia. He was lost to follow-up. In addition he has been following the Wound Care Center but reports that he has had difficulty obtaining supplies from [employer]. Now presents for routine follow-up and wound check. [facility] Medical History S/P angiogram of extremity DVT (deep venous thrombosis) Cellulitis of right leg Venous ulcer of right leg Surgical History Status post ablation of incompetent vein using laser Social History Patient Tobacco Use Status: Never used Tobacco Review of Systems Const All systems reviewed & are unremarkable except as noted in HPI and below Reports no additional complaints ENT Reports Normal hearing present Card Denies chest pain, Denies chest pain at rest, Denies chest pain with activity and Denies pedal edema Resp Denies cough GI Denies abdominal pain Musc Denies abnormal gait, Denies muscle cramps and Denies radiating pain into limb Skin/Breast Denies skin ulcer and Denies wounds Neuro Reports Normal hearing present and Denies abnormal gait Psych Reports no additional complaints Physical Exam Vital Signs: BMI result Body Mass Index 32.5 Const General: cooperative, healthy appearing and comfortable Orientation/consciousness: oriented to person, oriented to place and oriented to time HEENT Head: Yes normal to inspection Neck Neck: Yes normal visual inspection Carotids: no bruits Chest Chest palpation & inspection: normal inspection of the chest Resp Effort & Inspection: normal respiratory effort and able to speak in complete sentences Auscultation: clear to auscultation bilaterally, no crackles, no rales, no rhonchi and no wheezes Cardio Rate: regular rate Rhythm: regular rhythm Heart sounds: S1 normal heart sound present and S2 normal heart sound present Bruits: no carotid bruits Peripheral pulses: Peripheral pulses 2+ throughout GI Inspection: Yes normal to inspection Skin Other: Right leg tibial surface the pretibial larger wound measures 9 x 6 x 0.1 cm more inferior is a 5 x 2 x 0.1 cm ulcer. There is some fibrinous material over all the skin is dry and excoriated along side of it. Wounds: no wounds Hair: normal Neuro General: oriented to person, oriented to place and oriented to time Cranial nerves: Yes CN's II-XII intact bilaterally and Yes Normal hearing present Cognition (Neuro): normal cognition Motor exam (neuro): 5/5 motor strength present throughout Extrem Other: venous exam: No significant superficial varicosities or spider telangiectasias, minimal edema General: No clubbing, No cyanosis and No edema Psych Appearance: grossly normal Mental Status: mental status grossly normal Speech and movement: Normal speech and movement present Assessment & Plan Assessment & Plan (1) PAD (peripheral artery disease): Comment: - endovascular treatment by Dr. Abdul right lower extremity what was done is unknown Code(s): I73.9 - Peripheral vascular disease, unspecified Category: Medical Plan: See below (2) DVT (deep venous thrombosis): Comment: 2018 - [place] appears to have deep venous thrombectomy with possible venous stenting Code(s): I82.409 - Acute embolism and thrombosis of unspecified deep veins of unspecified lower extremity Category: Medical Qualifiers: DVT location: lower extremity Affected thrombotic vein of extremity: femoral Chronicity: chronic Laterality: right Qualified Code(s): I82.511 - Chronic embolism and thrombosis of right femoral vein Plan: See below (3) Varicose veins of right lower extremity with inflammation: Comment: 2017 - axial venous procedures performed by Dr. Pradhan what was done is unknown. 12/05/2024 - right great saphenous vein radiofrequency ablation Code(s): I83.11 - Varicose veins of right lower extremity with inflammation Category: Medical Plan: See below (4) Lymphedema: Code(s): I89.0 - Lymphedema, not elsewhere classified Category: Medical Plan: In short patient has nonhealing right lower extremity ulcer. He will be scheduled for dressing change of compressive wrap next Sunday. In addition he will be scheduled for right lower extremity debridement. Risks benefits complications of the procedure were discussed in detail with the patient. He agreed and would like to move forward with that. Coding Level of Care Code Est Pt Level 4 (12484) Diagnoses PAD (peripheral artery disease) I73.9 Chronic deep vein thrombosis (DVT) of femoral vein of right lower extremity I82.511 DVT location: lower extremity Affected thrombotic vein of extremity: femoral Chronicity: chronic Laterality: right Varicose veins of right lower extremity with inflammation I83.11 Lymphedema I89.0
[2025-04-02 10:13] VITALS: BMI 32.5
== END 2025-04-02 11:06 | disposition home or self-care (01) ==
LOC: HO.HVS 10:07
PROVIDERS: PCP Family Medicine; Visit Provider Surgery Vascular Surgery
DX: I73.9 Peripheral vascular disease, unspecified (principal); I82.511 Chronic embolism and thrombosis of right femoral vein; I83.11 Varicose veins of right lower extremity with inflammation; I89.0 Lymphedema, not elsewhere classified
CPT/HCPCS: 99214

== ENCOUNTER → 2025-04-02 10:06 | Outpatient (BNVA) | payer MEDICAID, SELFPAY | PROVIDERS: PCP Family Medicine; Visit Provider Surgery Vascular Surgery | DX: I73.9 Peripheral vascular disease, unspecified (principal); I82.511 Chronic embolism and thrombosis of right femoral vein; I83.11 Varicose veins of right lower extremity with inflammation; I89.0 Lymphedema, not elsewhere classified | CPT/HCPCS: 99212 ==

== ENCOUNTER 2025-04-07 10:08 | Outpatient (AMB) | payer MEDICAID, SELFPAY ==
[2025-04-07 10:19] VITALS: BMI 32.5
--- NOTE | 2025-04-07 10:19 | MHC.OFFVIS ---
Vital Signs 04/07/25 10:19 Height 6 ft 3 in Weight 260 lb BMI 32.5 Intake Visit Reasons: wound check Intake Note: multi layer wrap change. Pt states he had such copius drainage that he had to take wrap off on Sunday and was unable to keep foot wrapped due to amount of drainage and irritation caused by wrap. He states the worse area is the weeping area on bottom of leg/ top of foot. States it has an odor. 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 He has chronic right lower extremity wounds, >11y, which have not been healing. He was going to [facility] here [facility] [place], but he states he has not been getting in there and they have not been sending wound care supplies in for him to change his dressings at home. He does continue to work, but recently has been working from home due to the increased drainage from the wounds. He is scheduled on Sunday for a surgical wound debridement. He states he is having extensive drainage from the area at the base of the foot/dorsal aspect of the ankle, where it is impeding his ability to bend and flex his foot. He states this has been worsening over the last week. He states this area has been draining more than the others. He denies any injuries to the area. He last changed his dressings on Sunday. [facility] Medical History S/P angiogram of extremity DVT (deep venous thrombosis) Cellulitis of right leg Venous ulcer of right leg Surgical History Status post ablation of incompetent vein using laser Social History Patient Tobacco Use Status: Never used Tobacco Review of Systems Const Reports as per HPI and Denies weakness ENT Reports Normal hearing present and Denies dizziness Card Reports as per HPI, Denies chest pain, Denies chest pain at rest, Denies chest pain with activity, Denies dyspnea and Denies dyspnea on exertion Resp Reports as per HPI, Denies cough, Denies dyspnea and Denies dyspnea on exertion GI Reports as per HPI, Denies abdominal pain, Denies nausea and Denies vomiting Musc Denies numbness Skin/Breast Reports as per HPI, Denies erythema and Denies wounds Neuro Reports Normal hearing present, Denies dizziness, Denies numbness, Denies Sensory deficit (Neuro) and Denies weakness Psych Reports no additional complaints Endo Reports no additional complaints Physical Exam Vital Signs: BMI result Body Mass Index 32.5 Const General: healthy appearing and no acute distress Orientation/consciousness: patient oriented x3 HEENT Head: Yes normal to inspection Ears: hearing grossly normal bilaterally Mouth: Normal oral and palatal mucosa present Resp Effort & Inspection: normal respiratory effort and able to speak in complete sentences Auscultation: clear to auscultation bilaterally Cardio Jugular venous distension: no JVD Rate: regular rate Rhythm: regular rhythm Heart sounds: S1 normal heart sound present and S2 normal heart sound present Bruits: no abdominal aortic bruits, no carotid bruits, no femoral bruits and no renal bruits Peripheral pulses: Peripheral pulses 2+ throughout GI Inspection: Yes normal to inspection Palpation (GI): No Abdominal aortic bruit present Skin General skin exam: no rashes or lesions noted Wounds: no wounds Hair: normal Neuro General: patient oriented x3 Cranial nerves: Yes Normal hearing present Cognition (Neuro): normal cognition Gait exam (Neuro): Normal gait present Motor exam (neuro): 5/5 motor strength present throughout Sensory Exam: No Sensory deficit (Neuro) Extrem Other: Right lower extremity: wounds not measured today, they were recently measured on 04/02. The mid-calf wound is malodorous with pseudomonas - green/blue noted in the lateral aspect of the entire wound. No drainage or bleeding noted. Second wound just distal to that wound is smaller, with slight drainage and beefy red wound bed. No bleeding noted. +2/3 pitting edema noted. Right foot base/dorsum of ankle: erythematous and swelling noted, moderate serous drainage noted. Passive and active ROM significantly decreased with dorsiflexion and plantar flexion. General: Yes normal to inspection, Yes full ROM, Yes capillary refill normal and Yes normal gait Assessment & Plan Assessment & Plan (1) PAD (peripheral artery disease): Comment: - endovascular treatment by Dr. Abdul right lower extremity what was done is unknown Code(s): I73.9 - Peripheral vascular disease, unspecified Category: Medical Plan: Rafael is presenting today for a wound check. He is scheduled for surgery for wound debridement on Sunday, he states he has never had a surgical debridement prior to this. 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 He had been using multiple layer wrapping for wound care. Today we applied multiple foam dressings, abd pads, kerlix wrap, and cricket bandage. I discussed with him that the foam dressing can go up to 7d, but it should be changed if there is leakage/soaking of the dressings. We supplied him with the dressing changes he would need. We will see him on Sunday for the surgical debridement. We discussed that if he had any issues or concerns prior to that, then he can reach out to the office. Coding Level of Care Code Est Pt Level 4 (53724) Diagnoses PAD (peripheral artery disease) I73.9
== END 2025-04-07 10:54 | disposition home or self-care (01) ==
LOC: HO.HVS 10:08
PROVIDERS: PCP Family Medicine; Visit Provider Physician Assistant Surgical
DX: I73.9 Peripheral vascular disease, unspecified (principal)
CPT/HCPCS: 99214

== ENCOUNTER → 2025-04-07 10:08 | Outpatient (BNVA) | payer MEDICAID, SELFPAY | PROVIDERS: PCP Family Medicine; Visit Provider Physician Assistant Surgical | DX: I87.331 Chronic venous hypertension (idiopathic) with ulcer and inflammation of right lower extremity (principal); L97.219 Non-pressure chronic ulcer of right calf with unspecified severity; I73.9 Peripheral vascular disease, unspecified | CPT/HCPCS: 99212 ==

== ENCOUNTER 2025-04-28 11:01 | Outpatient (AMB) | payer MEDICAID, SELFPAY ==
[2025-04-28 11:06] VITALS: BMI 32.5
--- NOTE | 2025-04-28 11:06 | A.OFFVIS_ITS ---
Vital Signs 04/28/25 11:06 Height 6 ft 3 in Weight 260 lb BMI 32.5 Intake Visit Reasons: follow up re-access wound for debridment Intake Note: Follow up to reaccess for Right LE wound debridement s/p [facility] hospital stay for PE. Had thrombectomy and was switched blood thinner meds. Accompanied by: Self / Same As Patient Allergies No Known Allergies Allergy (Verified 04/28/25 11:07) HPI HPI follow up re-access wound for debridment: Details: 40-year-old gentleman with nonhealing right lower extremity ulcers. He had been going to the [facility] but has been unable to follow-up with them as they have not reach back out to his multiple requests to see them. He was actually scheduled for wound debridement at that time ended up with a DVT and PE, status post embolectomy performed at [facility]. He appears to be doing much better. He has been switched from Xarelto to Eliquis. He now presents for wound follow-up of the right lower extremity. [facility] Medical History S/P angiogram of extremity DVT (deep venous thrombosis) Cellulitis of right leg Venous ulcer of right leg Surgical History Status post ablation of incompetent vein using laser Social History Patient Tobacco Use Status: Never used Tobacco Review of Systems Const All systems reviewed & are unremarkable except as noted in HPI and below Reports no additional complaints ENT Reports Normal hearing present Card Denies chest pain, Denies chest pain at rest, Denies chest pain with activity and Denies pedal edema Resp Denies cough GI Denies abdominal pain Musc Denies abnormal gait, Denies muscle cramps and Denies radiating pain into limb Skin/Breast Denies skin ulcer and Denies wounds Neuro Reports Normal hearing present and Denies abnormal gait Psych Reports no additional complaints Physical Exam Vital Signs: BMI result Body Mass Index 32.5 Const General: cooperative, healthy appearing and comfortable Orientation/consciousness: oriented to person, oriented to place and oriented to time HEENT Head: Yes normal to inspection Neck Neck: Yes normal visual inspection Carotids: no bruits Chest Chest palpation & inspection: normal inspection of the chest Resp Effort & Inspection: normal respiratory effort and able to speak in complete sentences Auscultation: clear to auscultation bilaterally, no crackles, no rales, no rhonchi and no wheezes Cardio Rate: regular rate Rhythm: regular rhythm Heart sounds: S1 normal heart sound present and S2 normal heart sound present Bruits: no carotid bruits Peripheral pulses: Peripheral pulses 2+ throughout GI Inspection: Yes normal to inspection Skin Other: Right lower extremity wound extremely raw and irritated. Significant serous drainage. Upper pretibial wound measuring 10 x 6 x 0.1 Lower pretibial wound measuring 2 x 6 x 0.2 Medial malleolus ulcer measuring 4 x 4 x 0.1 cm. Wounds: no wounds Hair: normal Neuro General: oriented to person, oriented to place and oriented to time Cranial nerves: Yes CN's II-XII intact bilaterally and Yes Normal hearing present Cognition (Neuro): normal cognition Motor exam (neuro): 5/5 motor strength present throughout Extrem Other: venous exam: No significant superficial varicosities or spider telangiectasias, minimal edema General: No clubbing, No cyanosis and No edema Psych Appearance: grossly normal Mental Status: mental status grossly normal Speech and movement: Normal speech and movement present Assessment & Plan Assessment & Plan (1) PAD (peripheral artery disease): Comment: - endovascular treatment by Dr. Abdul right lower extremity what was done is unknown Code(s): I73.9 - Peripheral vascular disease, unspecified Category: Medical Plan: See above (2) Varicose veins of right lower extremity with inflammation: Comment: 2018 - axial venous procedures performed by Dr. Pradhan what was done is unknown. 12/05/2024 - right great saphenous vein radiofrequency ablation Code(s): I83.11 - Varicose veins of right lower extremity with inflammation Category: Medical Plan: See above (3) Nonhealing ulcer of right lower extremity: Code(s): L97.919 - Non-pressure chronic ulcer of unspecified part of right lower leg with unspecified severity Category: Medical Qualifiers: Non-pressure ulcer stage: with necrosis of muscle Qualified Code(s): L97.913 - Non-pressure chronic ulcer of unspecified part of right lower leg with necrosis of muscle Plan: In short patient has nonhealing right lower extremity ulcer. He will require right lower extremity debridement. Risks benefits complications were discussed in detail with the patient he understood and consented. In addition we will add Mycolog cream to this. Thank you for allowing us to assist in his care. If there are any questions or concerns please do not hesitate to contact us. Coding Level of Care Code Est Pt Level 4 (73821) Complex EM visit Add On G2211 Diagnoses PAD (peripheral artery disease) I73.9 Varicose veins of right lower extremity with inflammation I83.11 Nonhealing ulcer of right lower extremity with necrosis of muscle L97.913 Non-pressure ulcer stage: with necrosis of muscle
== END 2025-04-28 11:42 | disposition home or self-care (01) ==
LOC: HO.HVS 11:01
PROVIDERS: PCP Family Medicine; Visit Provider Surgery Vascular Surgery
DX: I73.9 Peripheral vascular disease, unspecified (principal); I83.11 Varicose veins of right lower extremity with inflammation; L97.913 Non-pressure chronic ulcer of unspecified part of right lower leg with necrosis of muscle
CPT/HCPCS: 99214; G2211

== ENCOUNTER → 2025-04-28 11:01 | Outpatient (BNVA) | payer MEDICAID, SELFPAY | PROVIDERS: PCP Family Medicine; Visit Provider Surgery Vascular Surgery | DX: I83.11 Varicose veins of right lower extremity with inflammation (principal); I73.9 Peripheral vascular disease, unspecified; L97.513 Non-pressure chronic ulcer of other part of right foot with necrosis of muscle | CPT/HCPCS: 99212 ==

== ENCOUNTER 2025-05-04 10:06 | Day surgery (SDC) | payer MEDICAID, SELFPAY ==
[2025-04-09 12:12] VITALS: BMI 32.5
[2025-05-04] VITALS (8 sets, daily range): BP systolic 141–168; BP diastolic 99–109; PULSE 74–89; RESP 16; TEMP 36.3–37.1; O2SAT 90–98; BMI 33.4
[2025-05-04] MEDS: Lactated Ringers 1,000 ML 50 ML IVCONT (10:52)
--- NOTE | 2025-05-04 11:47 | MHC.SHP ---
Pre-Procedural Eval Section A - 24 Hr Update-Section A only Date of Service: 05/04/25 The patient is an INPATIENT: No Changes since office visit: Yes Patient answered all questions The patient has been examined within 24 hours of the surgical procedure. The History & Physical has been completed within 30 days and I have reviewed it.: Yes Section B - Complete if H&P > 30 days Chief Complaint: Non-pressure chronic ulcer of other part of right Allergies: Allergies Allergy/AdvReac Type Severity Reaction Status Date / Time No Known Allergies Allergy Verified 04/28/25 11:07 Plan I have reviewed the history and physical and performed a pertinent physical examination on my patient. No changes have occurred unless specified. Time Spent With Patient Time: Total time managing care of this patient today ____ minutes.
--- NOTE | 2025-05-04 11:53 | HO.ANESPROP2 ---
PMF Active Problems Active Problems: All Active Problems Nonhealing ulcer of right lower extremity (Acute) Lymphedema (Acute) Varicose veins of right lower extremity with inflammation (Acute) PAD (peripheral artery disease) (Acute) DVT (deep venous thrombosis) (Acute) Past Medical History Medical History (Updated 05/04/25 @ 10:24 by Tsering Herrera RN) Pulmonary embolism S/P angiogram of extremity DVT (deep venous thrombosis) Cellulitis of right leg Venous ulcer of right leg Family History Family history of problems with anesthesia: No Surgical History Surgical History Status post ablation of incompetent vein using laser History of Problems with Anesthesia: No Social History Social History Patient Tobacco Use Status: Never used Tobacco Use of substances other than those prescribed or required for medical reasons: No Are you DNR?: No Advance Directives: No Advance Directives Information Provided: Yes Poor oral hygiene: No Meds Allergies Allergy/AdvReac Type Severity Reaction Status Date / Time No Known Allergies Allergy Verified 04/28/25 11:07 Active Medications: Current Medications Lactated Ringer's (Lr) 1,000 mls @ 50 mls/hr IVCONT .Q20H POOL Last Admin: 05/04/25 10:52 Dose: 50 mls/hr Home Medications ?Medication ?Instructions ?Recorded ?Confirmed ?Last Taken ?Type folic acid 1 mg tablet 1 mg PO DAILY 08/07/24 05/04/25 05/04/25 History gabapentin 300 mg capsule 600 mg PO BID 08/07/24 05/04/25 05/04/25 History omeprazole 40 mg capsule,delayed 40 mg PO BID 08/07/24 05/04/25 05/04/25 History release ferrous sulfate 325 mg (65 mg 325 mg PO BID 02/18/25 05/04/25 05/04/25 History iron) tablet apixaban 5 mg tablet (Eliquis) 5 mg PO BID 04/28/25 05/04/25 05/02/25 History Exam Height,Weight and Vital Signs: Height 6 ft 3 in Weight 121.1 kg Last Vital Signs Temp 98.3 F 05/04/25 10:38 Pulse 84 05/04/25 10:38 Resp 16 05/04/25 10:38 BP 168/105 H 05/04/25 10:38 Pulse Ox 95 05/04/25 10:38 O2 Del Method Room Air 05/04/25 10:38 Airway Mallampati Class: II (missing a couple) TM Dist: >3cm Neck ROM: Full Heart: rrr Lungs: cta Assessment and Plan Assessment Anesthesia Assessment: Anesthesia Plan Discussed and Chart Reviewed Final Anesthetic Review Family History of Problems with Anesthesia: No History of Problems with Anesthesia: No NPO: Yes ASA Class: II Final Preanesthetic Review: No Changes in Pt Med Stat, Meds/Allgs Chart Reviewed and Consent Obtained/Reviewed Patient Risk: Intermediate Procedure Risk: Low Anesthetic Plan Anesthetic Plan: GA Disposition: Standard PACU
--- NOTE | 2025-05-04 13:05 | W.PM.OPN ---
Operative Note Operative Note Date of Service: 05/04/25 Narrative: Operative note by [facility] Preoperative diagnosis: Nonhealing right lower extremity ulcers x3 Postoperative diagnosis: Same Procedure: Excisional debridement into muscle x3 Surgeon:Anibal Stern M.D. Supervisor Bonding: None Anesthesia: General Specimens: 1 deep culture Drains: None Estimated blood loss: Minimal Indications: Well-known 40-year-old gentleman with history of nonhealing ulcers chronic venous disease with most recent DVT presents for debridement of these nonhealing ulcers. The patient has signed the informed consent after reviewing risks, complications, benefits, and alternatives previously discussed with the patient. The patient was given the opportunity to ask any additional questions or voice any concerns. All questions were answered to the patient's satisfaction. Pre-procedure measurement and appearance: 1. 10 x 5 x 0.1 cm 2. 2.5 x 6 x 0.1 cm 3. 4 x 5 x 0.1 cm - all wounds with fibrinous necrotic material overlying Postprocedure measurement and appearance: 1. 10 x 5 x 0.3 cm 2. 2.7 x 6.2 x 0.3 cm 3. 4 x 5.1 x 0.3 cm - clean with good bleeding underlying material Procedure in detail: Excisional debridement of the right lower extremity was carried out.. Necrotic devitalized and nonviable tissue was removed. We debrided into muscle using 15 blade pickups and Metzenbaum scissors. Wound was thoroughly irrigated. At the conclusion wound appeared clean with good healthy underlying granulation tissue and bleeding edges. Clean and sterile dressing was applied. Dressing included a leaving x3 with 4x4s Kerlix Wolfgang wrap and overlying Coban. Patient tolerated the procedure well. Instructions were given to the patient. Follow-up was suggested. This note is constructed using voice recognition software. While every effort has been made to ensure accuracy, clinical medical assistant errors may have been included. Thank you for allowing me to participate in the care of your patient. Yours sincerely, Anibal Stern MD, FACS, R.P.V.I.
== END 2025-05-04 14:28 | disposition home or self-care (01) ==
PROVIDERS: PCP Hospitalist; Visit Provider Surgery Vascular Surgery
PROC: (CPT 11043; principal; 2025-05-04 12:20)
DX: L97.819 Non-pressure chronic ulcer of other part of right lower leg with unspecified severity (principal); I82.511 Chronic embolism and thrombosis of right femoral vein; I73.9 Peripheral vascular disease, unspecified; I83.11 Varicose veins of right lower extremity with inflammation; I89.0 Lymphedema, not elsewhere classified; Z79.01 Long term (current) use of anticoagulants; Z79.899 Other long term (current) drug therapy; Z98.890 Other specified postprocedural states
CPT/HCPCS: 11043; 11046 ×3; 87070; 87077; 87186; 87205; J0131; J0690; J1100; J2003; J2250; J2405; J2704; J3010

== ENCOUNTER → 2025-05-04 10:06 | Outpatient (BNV) | payer MEDICAID, SELFPAY | PROVIDERS: PCP Hospitalist; Visit Provider Surgery Vascular Surgery | DX: L97.819 Non-pressure chronic ulcer of other part of right lower leg with unspecified severity (principal) | CPT/HCPCS: 11043; 11046 ==

== ENCOUNTER 2025-05-28 10:15 | Outpatient (AMB) | payer MEDICAID, SELFPAY ==
--- NOTE | 2025-05-28 10:23 | MHC.OFFVIS ---
Vital Signs 05/28/25 10:28 Height 6 ft 3 in Weight 270 lb BMI 33.7 Intake Visit Reasons: Follow up debridement Intake Note: post op Right LE surgical debridement 05/04/25. Pt was admitted to [facility] 5 days after surgery for bilateral LE swelling w/ Right LE dvt. Accompanied by: Self / Same As Patient Allergies No Known Allergies Allergy (Verified 05/28/25 10:33) HPI HPI Follow up debridement: Details: Very pleasant 40-year-old gentleman presents for follow-up regarding nonhealing ulcers of the right lower extremity. He had actually undergone operative debridement on 05/04/2025. Postprocedure he ended up with [facility] with recurrent DVTs. He was treated in the hospital for nearly a week. Workup was essentially negative. It appears he was subsequently transitioned to Lovenox and Coumadin. He is currently on both trying to stabilize his INR. Most recently his reports that his last INR was 2.5. He now presents for right lower extremity re-evaluation [facility] Medical History Pulmonary embolism S/P angiogram of extremity DVT (deep venous thrombosis) Cellulitis of right leg Venous ulcer of right leg Surgical History Status post ablation of incompetent vein using laser Social History Patient Tobacco Use Status: Never used Tobacco Review of Systems Const All systems reviewed & are unremarkable except as noted in HPI and below Reports no additional complaints ENT Reports Normal hearing present Card Denies chest pain, Denies chest pain at rest, Denies chest pain with activity and Denies pedal edema Resp Denies cough GI Denies abdominal pain Musc Denies abnormal gait, Denies muscle cramps and Denies radiating pain into limb Skin/Breast Denies skin ulcer and Denies wounds Neuro Reports Normal hearing present and Denies abnormal gait Psych Reports no additional complaints Physical Exam Vital Signs: BMI result Body Mass Index 33.7 Const General: cooperative, healthy appearing and comfortable Orientation/consciousness: oriented to person, oriented to place and oriented to time HEENT Head: Yes normal to inspection Neck Neck: Yes normal visual inspection Carotids: no bruits Chest Chest palpation & inspection: normal inspection of the chest Resp Effort & Inspection: normal respiratory effort and able to speak in complete sentences Auscultation: clear to auscultation bilaterally, no crackles, no rales, no rhonchi and no wheezes Cardio Rate: regular rate Rhythm: regular rhythm Heart sounds: S1 normal heart sound present and S2 normal heart sound present Bruits: no carotid bruits Peripheral pulses: Peripheral pulses 2+ throughout GI Inspection: Yes normal to inspection Skin Other: Right Upper wound measures 9 x 6 x 0.1 cm Right middle wound measures 2.5 x 5 by 0.1 cm Right lower wound measures 3.5 x 4 x 0.1 cm. Overall good granulation base. Wounds: no wounds Hair: normal Neuro General: oriented to person, oriented to place and oriented to time Cranial nerves: Yes CN's II-XII intact bilaterally and Yes Normal hearing present Cognition (Neuro): normal cognition Motor exam (neuro): 5/5 motor strength present throughout Extrem Other: venous exam: No significant superficial varicosities or spider telangiectasias, minimal edema General: No clubbing, No cyanosis and No edema Psych Appearance: grossly normal Mental Status: mental status grossly normal Speech and movement: Normal speech and movement present Assessment & Plan Assessment & Plan (1) PAD (peripheral artery disease): Comment: - endovascular treatment by Dr. Abdul right lower extremity what was done is unknown Code(s): I73.9 - Peripheral vascular disease, unspecified Category: Medical Plan: See below (2) Varicose veins of right lower extremity with inflammation: Comment: 2018 - axial venous procedures performed by Dr. Pradhan what was done is unknown. 12/05/2024 - right great saphenous vein radiofrequency ablation Code(s): I83.11 - Varicose veins of right lower extremity with inflammation Category: Medical Plan: See below (3) Nonhealing ulcer of right lower extremity: Code(s): L97.919 - Non-pressure chronic ulcer of unspecified part of right lower leg with unspecified severity Category: Medical Qualifiers: Non-pressure ulcer stage: with necrosis of muscle Qualified Code(s): L97.913 - Non-pressure chronic ulcer of unspecified part of right lower leg with necrosis of muscle Plan: In short patient has nonhealing right lower extremity ulcers. A lot of this has to do with underlying reflux just by the mere fact that he had a DVT. He is now with more central reflux. I would like to manage him conservatively at the current time. He is trying to stabilize his anticoagulation status. Once that becomes more stable will become more aggressive with his wound care. In general it does appear to be gradually slowly improving. We did request additional wound care supplies for him. He will follow up with us in approximately 2-3 weeks time. Thank you for allowing us to assist in his care. Coding Level of Care Code Est Pt Level 4 (86998) Diagnoses PAD (peripheral artery disease) I73.9 Varicose veins of right lower extremity with inflammation I83.11 Nonhealing ulcer of right lower extremity with necrosis of muscle L97.913 Non-pressure ulcer stage: with necrosis of muscle
[2025-05-28 10:28] VITALS: BMI 33.7
--- OUTSIDE RECORDS SUMMARY | 2025-05-28 11:00 | XMS_ITS | Encounter Summary ---
Author Organization [facility] Address [address] [place] [address] Phone Care Team Providers Care Companion Caregiver Name Role Phone OctaviaCherry MD Primary Care Provider Deven Patterson MD Primary Care Provide r Thierry Yoo DO Unavailable [phone] Jennifer Holloway NUTRITION REPRESENTATIVE Unavailable [phone] Kenia Lau-C Unavailable [phone] Duane Hale MD Primary Care Provider [phone] Sonya Chapman RN Unavailable [phone] Duane Hale MD Unavailable Unknown, Unknown Primary Care Provider Duane Gonzalez MD Primary Care Provider [phone] Pcp, Unknown Primary Care Provider Unavailabl e Unknown, Unknown Primary Care Provider UnavaChon Cody MD Primary Care Provider [phone] Duane Hale MD Unavailable [phone] Chon Farfan MD Unavailable [phone] Salome Hwang RN Unavailable Chon Farfan MD Primary Care Provider Sandrine Mera GRAIN AND YEAST PLANTS SUPERVISOR Unavailable [phone] Shoshana Watson RN Unavailable [email or web address] [email or web address] Unavailable [email or web address] Tyler [facility] Unavailable [phone] Chon Farfan MD Primary Care Provider [phone] Sandrine Mera GRAIN AND YEAST PLANTS SUPERVISOR Unavailable [phone] Libby Bishop Unavailable [phone] Shoshana Watson RN Unavailable [email or web address] Rachelle Trevino Unavailable [email or web address] Unavailable [phone] Encounter Details Date Type Department Care Team (Late st Contact Info) Description 11/22/2017 Ancillary Orders [facility], X-Ray - [address] [address] Alvaro Hurt DPM [address] [place] [address] Ulcer Social History Tobacco Use Types Packs/Day Years Used Date Smoking Tobacco: Never Assessed Sex and Gender Information Value Date Recorded Sex Assigned at Male 02/04/2018 6:46 PM EDT Legal Sex Male 9:11 PM EDT Gender Identity Male 02/04/2018 6:46 PM EDT Sexual Orientation Straight 02/04/2018 6: 46 PM EDT documented as of this encounter Plan of Treatment Upcoming Encounters Date Type Department Care Team (Late st Contact Info) Description 11/19/2025 10:10 AM EST Office Visit [facility] Rheumatology [address] [place] [address] Toya Goss MD, MPH [address] [place] [address], [address] [place] [address] ([email or web address]) [email or web address] documented as of this encounter Results * XR Tibia Fibula 2 Views (Right) (11/22/2017 3:42 PM EST) Anatomical Region Laterality Modality Leg Right Radiographic Stephie ging 11/22/2017 3:50 PM EST Impressions 11/22/2017 3:52 PM EST No acute bony abnormality. POS [id number] Narrative 11/22/2017 3:52 PM EST COMPARISON: None FINDINGS: Frontal and lateral views reveal no acute traumatic or destructive bony abnormality. There are multiple faint linear lucencies seen bridging the ventral cortex of the mid tibial shaft which could reflect screw tracks from a previous orthopedic fixation plate. No periosteal elevation or soft tissue gas collection identified. Procedure Note Dony Rooney MD - 11/22/2017 COMPARISON: None FINDINGS: Frontal and lateral views reveal no acute traumatic or destructive bonyabnormality. There are multiple faint linear lucencies seen bridging theventral cortex of the mid tibial shaft which could reflect screw tracksfrom a previous orthopedic fixation plate. No periosteal elevation orsoft tissue gas collection identified. IMPRESSION: No acute bony abnormality. POS [id number] Alvaro Licha DPM IMG XR LOWER EXTREMITY Final R esult documented in this encounter Visit Diagnoses Diagnosis Ulcer Chronic ulcer of unspecified site Ulcer Chronic ulcer of unspecified site documented in this encounter Additional Health Concerns Infection Onset Date Last Indicated Resolved Time CoV-Risk Comment:Per note documentation 03/29/2021 03/29/2021 11:22 AM EDT CoV-Risk 09/23/2021 09/23/2021 10/03/2021 1:23 AM EST CoV-Risk Comment:Per note documentation 01/27/2022 01/27/2022 1:17 AM EDT CoV-Risk 10/30/2022 10/30/2022 11/10/2022 1:23 AM EST CoV-Risk Comment:Neg covid 12/20/2022 12/20/2022 12/21/2022 6:[address] CoV-Risk 04/12/2025 04/12/2025 04/23/2025 1:21 AM EDT documented as of this encounter Care Teams Companion Caregiver Relationship Specialty Start Date End Date Cherry Dudley MD PCP - General 08/20/17 12/10/19 Deven Patterson MD [address] [facility] [address] [place] [address] PCP - General Family Medicine 12/11/19 08/02/21 Duane Hale MD [address] [place] [address], [address] [place] [address] [email or web address] PCP - General Internal Medicine 08/03/21 12/31/21 Unknown, MD Of[place] PCP - General 01/02/22 01/05/22 Duane Hale MD [address] [place] [address], [address] [place] [address] [email or web address] PCP - General Internal Medicine 01/06/22 01/17/22 Pcp, Unknown PCP - General 01/18/22 01/25/22 Unknown, MD [place] PCP - General 01/26/22 03/13/22 Chon Farfan MD PCP - General Family Medicine 03/14/22 05/22/23 Chon Farfan MD [address] [place] [address] [email or web address] PCP - General Family Medicine 05/23/23 02/11/24 Chon Farfan MD [address] [place] [phone] [email or web address] PCP - General Family Medicine 02/12/24 Thierry Yoo DO [address] [place] [address] [email or web address] Primary Oncologist Hematology and Oncology 01/28/21 06/09/24 Jennifer Holloway FNP [address] [place] [address] Nurse Practitioner Hematology and Oncology 01/28/21 06/09/24 Kenia Lau PA-C [address] [place] [phone] Physician Mobile Plant Operators Hematology 07/25/21 06/09/24 Sonya Chapman RN [address] [place] [phone] [employer] Corporate Travel Consultant 08/08/21 09/21/21 Duane Hale MD [address] [place] [address], [address] [address] Primary Care Physician 10/21/21 Duane Hale MD [address] [place] [address], [address] [address] Insurance Assigned Provider 10/21/21 04/15/22 Chon Farfan MD [address] [place] [phone] [email or web address] Insurance Assigned Provider 04/15/22 07/14/23 Salome Hwang RN [address] [place] [phone] [employer] Corporate Travel Consultant 09/25/22 11/07/22 Sandrine Mera, GRA[employer] YEAST PLANT[employer] SUPERVISOR [address] [place] [phone] [email or web address] [employer] Plus Corporate Travel Consultant Nurse Practitioner 06/25/2308/06 Shoshana Watson RN [address] [place] [address] [email or web address] [employer] Plus Corporate Travel Consultant 06/25/23 09/02/23 Rachelle Gorman [address] [place] [address] [email or web address] [employer] Plus Community Health Worker 06/25/23 09/02/23 Debbie Tyler [facility] [address] [place] [address] [email or web address] [employer] Plus Engineer [employer] 06/25/23 09/02/23 Sandrine Mera, [employer] SUPERVISOR [address] [place] [phone] [email or web address] [employer] Plus Corporate Travel Consultant Nurse Practitioner 05/27/24 Libby Bishop MBBS [address] [place] [address] Medical Oncology 06/10/24 Shoshana Watson RN [address] [place] [address] [email or web address] [employer] Plus Corporate Travel Consultant 02/24/25 Rachelle Gorman [address] [place] [address] [place] [address] [email or web address] Plus Community Health Worker 02/24/25 Debbie Tyler, [facility] [address] [place] [address] [email or web address] [employer] Plus Engineer Gas Pumping Station 02/24/25 documented as of this encounter Additional Source Comments The information contained in this document represents components of the legal health record. It is not the complete legal health record.[facility]
--- OUTSIDE RECORDS SUMMARY | 2025-05-28 11:00 | XMS_ITS ---
Author Name [facility] Organization Unknown Encounters Encounter Type Encounter Reason Primary Diagnosis Location Date Ambulatory Pulmonary Embolism [facility] 01/26/2022 Care Team Organization Name Specialty Phone Email Start Date End Da te [facility] 01/28/2022 06/23/2024 [facility] 01/26/2022 01/26/2022
--- OUTSIDE RECORDS SUMMARY | 2025-05-28 11:00 | XMS_ITS | Clinical Summary ---
Author Organization [facility] Address [address] [place] [address] Care Team Providers Care Human Resources Manager Manufacturing Name Role Phone Unavailable Primary Care Provider [...]
== END 2025-05-28 11:01 | disposition home or self-care (01) ==
LOC: HO.HVS 10:16
PROVIDERS: PCP Hospitalist; Visit Provider Surgery Vascular Surgery
DX: I73.9 Peripheral vascular disease, unspecified (principal); I83.11 Varicose veins of right lower extremity with inflammation; L97.913 Non-pressure chronic ulcer of unspecified part of right lower leg with necrosis of muscle
CPT/HCPCS: 99214

== ENCOUNTER → 2025-05-28 10:15 | Outpatient (BNVA) | payer MEDICAID, SELFPAY | PROVIDERS: PCP Hospitalist; Visit Provider Surgery Vascular Surgery | DX: I73.9 Peripheral vascular disease, unspecified (principal); I83.11 Varicose veins of right lower extremity with inflammation; L97.913 Non-pressure chronic ulcer of unspecified part of right lower leg with necrosis of muscle; I26.99 Other pulmonary embolism without acute cor pulmonale; I82.401 Acute embolism and thrombosis of unspecified deep veins of right lower extremity; Z98.890 Other specified postprocedural states | CPT/HCPCS: 99212 ==

== ENCOUNTER 2025-06-18 10:31 | Outpatient (AMB) | payer MEDICAID, SELFPAY ==
[2025-06-18 10:32] VITALS: BMI 33.7
--- NOTE | 2025-06-18 10:32 | A.OFFVIS_ITS ---
Vital Signs 06/18/25 10:32 Height 6 ft 3 in Weight 270 lb BMI 33.7 Intake Visit Reasons: 3 week wound check Intake Note: 3 week wound check s/p Right surg debridement 05/04/25. Pt states he has [facility], [facility] in [place] weekly. . Changes dressing daily. Silver alginate, ABD pads. Pt states he still has skin issues near foot. Double Surface Operator Required: No Accompanied by: Self / Same As Patient Allergies No Known Allergies Allergy (Verified 06/18/25 10:39) HPI HPI 3 week wound check: Details: Very pleasant 40-year-old gentleman presents for follow-up regarding nonhealing ulcers to the right lower extremity. He underwent operative debridement on 05/04/2025. Postprocedure he went to [facility] with DVT and PE. He had undergone pulmonary embolectomy. Subsequent to that he is now on anticoagulation. His right leg appears to be doing significantly better. He is currently under the care of [facility]. He now presents to us for routine follow-up. [facility] Medical History Pulmonary embolism S/P angiogram of extremity DVT (deep venous thrombosis) Cellulitis of right leg Venous ulcer of right leg Surgical History Status post ablation of incompetent vein using laser Social History Patient Tobacco Use Status: Never used Tobacco Review of Systems Const All systems reviewed & are unremarkable except as noted in HPI and below Reports no additional complaints ENT Reports Normal hearing present Card Denies chest pain, Denies chest pain at rest, Denies chest pain with activity and Denies pedal edema Resp Denies cough GI Denies abdominal pain Musc Denies abnormal gait, Denies muscle cramps and Denies radiating pain into limb Skin/Breast Denies skin ulcer and Denies wounds Neuro Reports Normal hearing present and Denies abnormal gait Psych Reports no additional complaints Physical Exam Vital Signs: BMI result Body Mass Index 33.7 Const General: cooperative, healthy appearing and comfortable Orientation/consciousness: oriented to person, oriented to place and oriented to time HEENT Head: Yes normal to inspection Neck Neck: Yes normal visual inspection Carotids: no bruits Chest Chest palpation & inspection: normal inspection of the chest Resp Effort & Inspection: normal respiratory effort and able to speak in complete sentences Auscultation: clear to auscultation bilaterally, no crackles, no rales, no rhonchi and no wheezes Cardio Rate: regular rate Rhythm: regular rhythm Heart sounds: S1 normal heart sound present and S2 normal heart sound present Bruits: no carotid bruits Peripheral pulses: Peripheral pulses 2+ throughout GI Inspection: Yes normal to inspection Skin Other: Right calf wound: 1. Superior wound measures 9 x 6 x 0.1 cm with good granulation base 2. Inferior pretibial measures 3 x 5 x 0.1 cm 3. Medial ankle ulcer measures 4 x 4 x 0.1 cm with multiple islands of growth Wounds: no wounds Hair: normal Neuro General: oriented to person, oriented to place and oriented to time Cranial nerves: Yes CN's II-XII intact bilaterally and Yes Normal hearing pres ent Cognition (Neuro): normal cognition Motor exam (neuro): 5/5 motor strength present throughout Extrem Other: venous exam: No significant superficial varicosities or spider telangiectasias, minimal edema General: No clubbing, No cyanosis and No edema Psych Appearance: grossly normal Mental Status: mental status grossly normal Speech and movement: Normal speech and movement present Assessment & Plan Assessment & Plan (1) PAD (peripheral artery disease): Comment: - endovascular treatment by Dr. Abdul right lower extremity what was done is unknown Code(s): I73.9 - Peripheral vascular disease, unspecified Category: Medical Plan: In short patient appears to be doing extremely well with his right lower extremity wounds. They continue to progress. He will continue to follow up with us [facility]. We will follow up with us in approximately 6 weeks' time to ensure it is progressing in the right direction. Thank you for allowing us to assist in his care. (2) Varicose veins of right lower extremity with inflammation: Comment: 2017 - axial venous procedures performed by Dr. Pradhan what was done is unknown. 12/05/2024 - right great saphenous vein radiofrequency ablation Code(s): I83.11 - Varicose veins of right lower extremity with inflammation Category: Medical Plan: See above (3) DVT (deep venous thrombosis): Comment: 2017 - [place] appears to have deep venous thrombectomy with possible venous stenting April 2025 - pulmonary embolectomy with IVC filter at 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
--- OUTSIDE RECORDS SUMMARY | 2025-06-18 11:29 | XMS_ITS | Encounter Summary ---
Author Organization [facility] Address [address] [place] [address] Phone Care Team Providers Care Buffing Turner And Counter Name Role Phone Duane Hale MD Unavailable [phone] Chon Farfan MD Primary Care Provider [phone] Sandrine Mera PRIVATE BRANCH EXCHANGE SERVICE ADVISOR Unavailable Libby Bishop Unavailable [phone] Shoshana Watson RN Unavailable [email or web address] Rachelle Trevino Unavailable [email or web address] Debbie Tyler [facility] Unavailable [phone] Reason for Visit * Reason Comments f/u DVTs f/u RLE wounds Encounter Details Date Type Department Care Team (Late st Contact Info) Description 06/04/2025 Outpt Home Visit [facility] PLUS Program [address] [place] [address] Sandrine Mera, PRIVATE BRANCH EXCHANGE SERVICE ADVISOR [address] [place] [address] Social History Tobacco Use Types Packs/Day Years Used Date Smoking Tobacco: Never Smokeless Tobacco: Never Alcohol Use Standard Drinks/Week Comments Yes 7 (1 standard drink = 0.6 oz pur e alcohol) Education Answer Date Recorded Are you interested in more education? Not on adi e 03/02/2023 Are you concerned about learning? Not on file 03/02/2023 No 03/02/2023 No 03/02/2023 Food Answer Date Recorded Within the past 6 months we worried whether our food would run out before we got money to buy more. Never True 05/08/2025 Within the past 6 months the food we bought just didn't last and we didn't have enough money to get more. Never True Residential Stability Answer Date Recor ded What is your housing situation today? I have antolin sing 05/08/2025 How many times have you move d in the past 12 months? Zero (I did not move) 05/08/2025 Paying for Meds Answer Date Recorded Do you have trouble paying for medicines? No 05/08/2025 Paying Utility Bills Answer Date Record ed Do you have trouble paying your heating or elect ricity bill? No 05/08/2025 Transportation Answer Date Recorded Has the lack of transportati on kept you from medical appointments or from getting medications? No 05/08/2025 Digital Access Answer Date Recorded No 05/08/2025 Yes 05/08/2025 Do you have reliable internet access at home? Ye s 05/08/2025 Do you have a device (e.g., phone, tablet, computer) with a working camera? Yes 05/08/2025 Intimate Partner Violence Answer Date R ecorded Are you denied basic needs s uch as food, clothing, or medical care? No 05/08/2025 In the past 12 months have y ou been in a relationship with a person who hurts, threatens, or tries to control you? No 05/08/2025 Are you denied basic needs s uch as food, clothing, or medical care? No 05/08/2025 In the past 12 months have y ou been in a relationship with a person who hurts, threatens, or tries to control you? No 05/08/2025 Sex and Gender Information Value Date Recorded Sex Assigned at Male 02/04/2018 6:46 PM EDT Legal Sex Male 9:11 PM EDT Gender Identity Male 02/04/2018 6:46 PM EDT Sexual Orientation Straight 02/04/2018 6: 46 PM EDT documented as of this encounter Plan of Treatment Upcoming Encounters Date Type Department Care Team (Late st Contact Info) Description 06/15/2026 9:10 AM EDT Office Visit [facility] Rheumatology [address] [place] [address] Toya Goss MD, MPH [address] [place] [address], [address] [place] [address] [email or web address] documented as of this encounter Goals Goal Patient Goal Type Associated Problems Recent Progress Patient-Stated? Author Acute Care Plan Acute Care Plan Mei Sanchez Note: This patient is part of [facility] PL[facility] Contact Information: Please call the [facility] MANAGER DATA WAREHOUSING Airport Duty Manager Sandrine Mera at [PHONE NUMBER] (see Care Coordination Note for additional team contacts). The [facility] care team may be with another patient at the time of your call, so please leave a voicemail so they can return your call. [facility] also has a 24 hour nursing line at [phone]. The [employer] PLUS MANAGER DATA WAREHOUSING or 24-hour nursing line may be able to deploy the [facility] community corporate legal secretary team or refer to a psychiatric crisis stabilization unit (CSU). Acute Care Recommendations - If the patient presents to the ED:xxx Acute Care Disposition Considerations: If patient is to be discharged home from ED: If patient is to be admitted to Hospital: Crisis Stabilization Options: Current Management Plans: Clinical: Acute Care Safety Considerations: Other: [facility] Psychiatric and Psychosocial Considerations: Issues/Plan: Pain Management: Issues/Plan: Prescription Management: Medication Contract: Issues/Plan: Patient Care Team: Chon Farfan MD as PCP - General (Family Medicine) Duane Hale MD as Primary Care Physician Sandrine Mera CNP as [employer] Plus Airport Duty Manager (Nurse Practitioner) Libby Bishop MBBS (Medical Oncology) Shoshana Watson RN as [employer] Plus Airport Duty Manager Tyler, Debbie L as [employer] Plus Fancy Wire Drawer [facility] Specialists: [facility] Care-Givers: Additional Considerations: Issues/Plan: Care Plan Endorsed or authored by: documented as of this encounter Visit Diagnoses Not on filedocumented in this encounter Care Teams Buffing Turner And Counter Relationship Specialty Start Date End Date Chon Farfan MD [address] [place] [phone] [email or web address] PCP - General Family Medicine 02/12/24 Duane Hale MD [address] [facility], [address] [place] [address] Primary Care Physician 10/21/21 Sandrine Mera CNP [address] [place] [phone] [employer] Plus Airport Duty Manager Nurse Practitioner 05/27/24 Libby Bishop MBBS [address] [place] [address] Medical Oncology 06/10/24 Shoshana Watson RN [address] [place] [address] [employer] Plus Airport Duty Manager 02/24/25 Rachelle Gorman [address] [place] [address] [employer] Plus Community Health Worker 02/24/25 Debbie Tyler [facility] [address] [place] [address] [employer] Plus Fancy Wire Drawer 02/24/25 documented as of this encounter Additional Source Comments The information contained in this document represents components of the legal health record. It is not the complete legal health record.[facility]
--- OUTSIDE RECORDS SUMMARY | 2025-06-18 11:29 | XMS_ITS | Clinical Summary ---
Author Organization [facility] Address [address] [place] [address] Care Team Providers Care Commissioner Public Works Name Role Phone Unavailable Primary Care Provider [...]
== END 2025-06-18 11:27 | disposition home or self-care (01) ==
PROVIDERS: PCP Hospitalist; Visit Provider Surgery Vascular Surgery
DX: I73.9 Peripheral vascular disease, unspecified (principal); I83.11 Varicose veins of right lower extremity with inflammation; I82.511 Chronic embolism and thrombosis of right femoral vein
CPT/HCPCS: 99214; G2211

== ENCOUNTER → 2025-06-18 10:31 | Outpatient (BNVA) | payer MEDICAID, SELFPAY | PROVIDERS: PCP Hospitalist; Visit Provider Surgery Vascular Surgery | DX: I83.11 Varicose veins of right lower extremity with inflammation (principal); I82.511 Chronic embolism and thrombosis of right femoral vein; I73.9 Peripheral vascular disease, unspecified | CPT/HCPCS: 99212 ==